=== PATIENT | male | born 1975 | race Caucasian/White ===

== ENCOUNTER → 2017-04-21 | Outpatient (CLI) | payer BC ==
[2017-04-21 09:55] LABS: CHOLESTEROL/HDL RATIO 5.2; THYROID STIMULATING HORMONE 1.06 uIu/ml (0.300-4.500)
== END | disposition home or self-care (01) ==
LOC: C.LAB1850 08:04
PROVIDERS: ATTEND Internal Medicine
DX: E78.5 Hyperlipidemia, unspecified (principal)

== ENCOUNTER → 2017-11-07 | Outpatient (CLI) | payer OTHER ==
--- NOTE | 2017-11-07 15:22 | DIAGNOSTIC IMAGING REPORT ---
Study: Fusion CT sinuses. HISTORY: Sinusitis. FINDINGS: Moderate mucosal thickening with minimal underlying polypoid change peripheral margin left maxillary sinus. Similar but less prominent findings seen peripheral aspect right maxillary sinus. The right ostiomeatal unit as well as left ostiomeatal unit is patent. Moderate mucosal thickening of the ethmoid sinuses. Frontal sinuses are generally clear. The orbital structures appear intact with no bony destructive process. Mild peripheral mucosal thickening of the sinuses. IMPRESSION: 1. Moderate mucosal thickening of all major sinuses. 2. The ostiomeatal units are patent bilaterally. 3. No evidence for a bony destructive process. Electronically signed by: Christopher Petit M.D. 11/07/2017 3:21 PM Dictated Date/Time: 11/07/2017 3:19 PM
== END | disposition home or self-care (01) ==
LOC: C.CTS 15:05
DX: J32.9 Chronic sinusitis, unspecified (principal)

== ENCOUNTER → 2018-01-22 | Outpatient (CLI) | payer OTHER ==
[2018-01-22 10:04] LABS: BLOOD UREA NITROGEN 15 mg/dl (7-18); CALCIUM 9.3 mg/dl (8.5-10.1); CARBON DIOXIDE 27 mmol/L (21-32); CHOLESTEROL 133 mg/dl (0-200); CREATININE 1.13 mg/dl (0.60-1.40); GLUCOSE 95 mg/dl (70-99); POTASSIUM 4.3 mmol/L (3.5-5.1); SODIUM 134 mmol/L (136-145)
[2018-01-22 10:08] LABS: LDL CHOLESTEROL CALCULATED 78 mg/dl
== END | disposition home or self-care (01) ==
LOC: C.LAB1850 08:10
PROVIDERS: ATTEND Internal Medicine
DX: E78.5 Hyperlipidemia, unspecified (principal); R53.83 Other fatigue